=== PATIENT | male | born 1970 | race Asian ===

== ENCOUNTER 2018-12-27 07:55 | Day surgery (SDC) | payer OTHER ==
[~2018-12-27 07:55] MED LIST: EPHEDrine 25 MG/5 ML SYG
[2018-12-27 09:42] LABS: ADD MAN DIFF? NO
[2018-12-27 09:46] LABS: WHITE BLOOD COUNT 5.4 10^3/ul (4.8-10.8)
[2018-12-27 09:46] LABS: BASOPHILS % 0.6 % (0.0-2.0); EOSINOPHILS # 0.4 10^3/ul (0.0-0.5); EOSINOPHILS % 6.4 % (0.0-7.0); HEMATOCRIT 47.2 % (42.0-52.0); HEMOGLOBIN 15.7 g/dl (14.0-18.0); LYMPHOCYTES # 2.1 10^3/ul (0.8-2.9); LYMPHOCYTES % 39.2 % (15.0-51.0); MEAN CORPUSCULAR HEMOGLOBIN 29.7 pg (29.0-33.0); MEAN CORPUSCULAR HGB CONC 33.3 g/dl (32.0-37.0); MEAN CORPUSCULAR VOLUME 89.4 fl (82.0-101.0); MEAN PLATELET VOLUME 12.7 fl (7.4-10.4); MONOCYTE # 0.6 10^3/ul (0.3-0.9); MONOCYTES % 10.5 % (0.0-11.0); NEUTROPHIL # 2.4 10^3/ul (1.6-7.5); NEUTROPHILS % 43.3 % (39.0-77.0); PLATELET COUNT 216 10^3/UL (140-415); RED BLOOD COUNT 5.28 10^6/ul (4.70-6.10); RED CELL DISTRIBUTION WIDTH 11.5 % (11.5-14.5)
[2018-12-27] MEDS: SOD CHLORIDE 0.9% 1,000 ML IV (09:53)
[2018-12-27 09:56] LABS: ALANINE AMINOTRANSFERASE 33 IU/L (13-69); ALBUMIN 4.2 g/dl (3.3-4.9); ALBUMIN/GLOBULIN RATIO 1.35; ALKALINE PHOSPHATASE 35 IU/L (42-121); ANION GAP 8 (5-13); ASPARTATE AMINO TRANSFERASE 29 IU/L (15-46); BILIRUBIN,INDIRECT 2.4 mg/dl (0-1.1); BILIRUBIN,TOTAL 2.4 mg/dl (0.2-1.3); BLOOD UREA NITROGEN 9 mg/dl (7-20); CALCIUM 9.7 mg/dl (8.4-10.2); CARBON DIOXIDE 28 mmol/L (21-31); CHLORIDE 107 mmol/L (97-110); CREATININE 0.83 mg/dl (0.61-1.24); Estimated GFR > 60 mL/min (>60); GLUCOSE 95 mg/dl (70-220); POTASSIUM 4.1 mmol/L (3.5-5.1); SODIUM 143 mmol/L (135-144); TOTAL PROTEIN 7.3 g/dl (6.1-8.1)
[2018-12-27] MEDS ORDERED: CEFAZOLIN 2 GM/50 ML (PMX) 50 ML IVPB (10:30)
[2018-12-27 11:09] LABS: INR 0.96; PROTIME 12.9 Sec (11.9-14.9)
[2018-12-27 11:10] LABS: PARTIAL THROMBOPLASTIN TIME 30.5 Sec (23.0-35.0)
[2018-12-27] MEDS ORDERED: MEPERIDINE 25 MG INJ IV (12:00)
[2018-12-27] MEDS ORDERED: HYDROmorphONE 1 MG/5 ML IV SYRINGE IV ×2 (12:00)
[2018-12-27] MEDS ORDERED: LABETALOL HCL 20MG INJ IV (12:00)
[2018-12-27] MEDS ORDERED: PROPOFOL 20 ML (12:00)
[2018-12-27] MEDS ORDERED: OXYCODONE/ACETAMINOPHEN (5/325) TAB PO (12:00)
[2018-12-27] MEDS ORDERED: FENTAnyl 50 MCG/ML VIAL IV ×2 (12:00)
[2018-12-27] MEDS ORDERED: MIDAZOLAM 1 MG/ML 2 ML INJ (12:00)
[2018-12-27] MEDS ORDERED: DIPHENHYDRAMINE 50 MG INJ IV (12:00)
[2018-12-27] MEDS ORDERED: METOCLOPRAMIDE 10 MG INJ IV (12:00)
[2018-12-27] MEDS ORDERED: FENTAnyl 50 MCG/ML VIAL (12:00)
[2018-12-27] MEDS ORDERED: ONDANSETRON 4 MG INJ IV (12:00)
[2018-12-27] MEDS: BUPIVACAINE 0.25% (MPF) 30 ML INJ (12:20)
[2018-12-27] MEDS ORDERED: CEFAZOLIN 1 GM INJ (12:23)
[2018-12-27] MEDS ORDERED: ONDANSETRON 4 MG INJ (12:23)
[2018-12-27] MEDS ORDERED: DEXAMETHASONE 4 MG/ML 5 ML INJ (12:24)
[2018-12-27] MEDS ORDERED: METOCLOPRAMIDE 10 MG INJ (12:24)
[2018-12-27] MEDS ORDERED: KETOROLAC 30 MG INJ (12:24)
[2018-12-27] MEDS ORDERED: HYDROCODONE/APAP (5/325) TAB PO (12:30)
== END 2018-12-27 14:55 | disposition home or self-care (01) ==
LOC: SDS 07:55
DX: M67.431 Ganglion, right wrist (principal); E03.9 Hypothyroidism, unspecified
CPT/HCPCS: 25111; 80053; 85025; 85610; 85730; 88304